=== PATIENT | male | born 1955 | race Caucasian/White ===

== ENCOUNTER 2018-03-06 10:38 | Emergency (ER) | payer OTHER ==
[2018-03-06] MEDS ORDERED: HYDROcodone/Acetaminophen 10/325 mg Tablet ONE (12:35)
[2018-03-06] MEDS ORDERED: Naproxen 500 MG TAB ONE (12:35)
[2018-03-06] MEDS ORDERED: Diazepam 5 MG TAB ONE (12:35)
--- NOTE | 2018-03-06 13:11 | RAD ---
TWO VIEWS RIGHT HIP: Date: 03-06-18 Provided Clinical History: Right hip pain. FINDINGS: There is no evidence for fracture or other acute osseous abnormality. Mild right hip joint space loss is seen. Alignment appears anatomic. No lytic or blastic lesions are seen. IMPRESSION: Mild right hip degenerative change. POS: GARY
--- NOTE | 2018-03-06 13:37 | RAD ---
LUMBAR SPINE RADIOGRAPHS THREE VIEWS: Date: 03-06-18 Provided Clinical History: Right sided sciatica. FINDINGS: Five non-rib bearing lumbar type vertebral bodies are present. Lumbar alignment appears normal. Verte bral body heights appear preserved. Pedicles appear intact. Mild disc space narrowing at L4-5 and mil d lower lumbar spine facet arthritis. IMPRESSION: Mild lower lumbar disc and facet degenerative change. POS: WARD
== END 2018-03-06 13:35 | disposition home or self-care (01) ==
LOC: MADERS 10:38
DX: M54.41 Lumbago with sciatica, right side (principal); M62.838 Other muscle spasm; K21.9 Gastro-esophageal reflux disease without esophagitis; E78.5 Hyperlipidemia, unspecified; I10 Essential (primary) hypertension; M19.90 Unspecified osteoarthritis, unspecified site; H40.9 Unspecified glaucoma; Z79.899 Other long term (current) drug therapy
CPT/HCPCS: 72100

== ENCOUNTER 2021-01-01 16:15 | Emergency (ER) | payer OTHER ==
[2021-01-01] MEDS ORDERED: Lidocaine 1% 20 ML MDV ONE (17:47)
[2021-01-01] MEDS ORDERED: Sulfameth/Trimethoprim DS 800-160mg TAB ONE (18:17)
== END 2021-01-01 18:20 | disposition home or self-care (01) ==
LOC: MADERS 16:15
DX: L02.511 Cutaneous abscess of right hand (principal); M19.90 Unspecified osteoarthritis, unspecified site; K21.9 Gastro-esophageal reflux disease without esophagitis; E78.5 Hyperlipidemia, unspecified; E78.00 Pure hypercholesterolemia, unspecified; I10 Essential (primary) hypertension
CPT/HCPCS: 10060; 87070; 87077; 87205

== ENCOUNTER 2021-01-03 10:40 | Emergency (ER) | payer OTHER | END 2021-01-03 11:32 | disposition home or self-care (01) | LOC: MADERS 10:40 | DX: Z48.817 Encounter for surgical aftercare following surgery on the skin and subcutaneous tissue (principal); M19.90 Unspecified osteoarthritis, unspecified site; K21.9 Gastro-esophageal reflux disease without esophagitis; E78.5 Hyperlipidemia, unspecified; E78.00 Pure hypercholesterolemia, unspecified; I10 Essential (primary) hypertension | CPT/HCPCS: 99282 ==

== ENCOUNTER 2022-06-12 10:34 | Emergency (ER) | payer OTHER ==
[~2022-06-12 10:34] MED LIST: Iopamidol 370 76% 100 ML VIAL ONE
[2022-06-12 11:42] LABS: #Basophils 0.1 thou/uL (0.0-0.2); #Eosinphils 0.2 thou/uL (0.0-0.7); #Lymphocytes 0.9 thou/uL (1.20-3.40); #Monocytes 0.8 thou/uL (0.11-0.59); #Neutrophils 6.6 thou/uL (1.40-6.50); %Basophils 1.1 % (0.0-1.0); %Eosinophils 2.6 % (0.0-10.0); %Lymphocytes 10.5 % (21.0-51.0); %Monocytes 9.6 % (0.0-10.0); %Neutrophils 76.1 % (42.0-75.0); Hemoglobin 13.6 g/dL (14.0-18.0); Mean Corpuscular HGB CONC 35.5 g/dL (32.0-36.0); Mean Corpuscular Hemoglobin 31.8 pg (27.0-31.0); Mean Corpuscular Volume 89.5 fL (78.0-98.0); Mean Platelet Volume 7.8 fL (7.4-10.4); Platelet Count 186 thou/uL (130-400); RBC Distribution Width 9.9 % (11.5-14.5); Red Blood Cell (RBC) Count 4.29 mill/uL (4.70-6.10); White Blood Cell (WBC) Count 8.6 thou/uL (4.8-10.8)
[2022-06-12 12:00] LABS: ALT (SGPT) 23 U/L (8-55); AST (SGOT) 34 U/L (5-34); Albumin 4.7 g/dL (3.4-4.8); Alkaline Phosphatase 78 U/L (40-110); Anion Gap 19 mmol/L (10-20); BUN (Urea Nitrogen) 4 mg/dL (8.4-25.7); CK (CPK) 280 U/L (30-200); Calc. Creatinine Clearance 0 mL/min (70-130); Calcium 9.2 mg/dL (7.8-10.44); Carbon Dioxide 20 mmol/L (23-31); Chloride 76 mmol/L (98-107); Estimated GFR 109; Glucose 98 mg/dL (80-115); Lipase 20 U/L (8-78); Potassium 3.7 mmol/L (3.5-5.1); Protein, Total 7.7 g/dL (5.8-8.1)
[2022-06-12 12:13] LABS: Sodium 111 mmol/L (136-145)
[2022-06-12 14:52] LABS: Bilirubin Negative (Negative); Blood, Urine Negative (Negative); Clarity Clear (Clear); Glucose, Urine (Dipstick) Negative (Negative); Ketone, Urine 80 mg/dL (Negative); Leukocyte Negative (Negative); Nitrite Negative (Negative); Protein, Urine (Dipstick) Trace mg/dL (Neg-Trace); Urobilinogen 0.2 mg/dL (Less than 2); pH, Urine 7.5 (5.0-9.0)
[2022-06-12] MEDS ORDERED: Sodium Chloride 0.9% 250 ML 250 ML ONE (14:53)
[2022-06-12] MEDS ORDERED: Morphine 4 MG/ML VIAL ONE ×2 (14:53→20:17)
[2022-06-12] MEDS ORDERED: Azithromycin 500 MG VIAL ONE (14:53)
[2022-06-12] MEDS ORDERED: cefTRIAXone\\ROCEPHIN 1 GM VIAL ONE (14:53)
[2022-06-12] MEDS ORDERED: Sodium Chloride 0.9% 1,000 ML ONE (14:53)
[2022-06-12 15:36] LABS: Anion Gap 21 mmol/L (10-20); BUN (Urea Nitrogen) 5 mg/dL (8.4-25.7); Calc. Creatinine Clearance 0 mL/min (70-130); Calcium 9.2 mg/dL (7.8-10.44); Carbon Dioxide 17 mmol/L (23-31); Chloride 77 mmol/L (98-107); Estimated GFR 111; Glucose 108 mg/dL (80-115); Potassium 3.6 mmol/L (3.5-5.1)
[2022-06-12 15:49] LABS: Sodium 111 mmol/L (136-145)
[2022-06-12 16:25] LABS: SARS-CoV-2 NAA Rapid Test Not Detected (NotDetected)
[2022-06-12 19:27] LABS: Anion Gap 17 mmol/L (10-20); BUN (Urea Nitrogen) 5 mg/dL (8.4-25.7); Calc. Creatinine Clearance 0 mL/min (70-130); Calcium 8.9 mg/dL (7.8-10.44); Carbon Dioxide 18 mmol/L (23-31); Chloride 79 mmol/L (98-107); Estimated GFR 112; Glucose 104 mg/dL (80-115); Potassium 3.4 mmol/L (3.5-5.1)
[2022-06-12 19:28] LABS: Sodium 111 mmol/L (136-145)
== END 2022-06-12 22:45 | disposition short-term general hospital (02) ==
LOC: MADERS 10:34
DX: S20.211A Contusion of right front wall of thorax, initial encounter (principal); E87.1 Hypo-osmolality and hyponatremia; R05.9 Cough, unspecified; I10 Essential (primary) hypertension; E78.00 Pure hypercholesterolemia, unspecified; K21.9 Gastro-esophageal reflux disease without esophagitis; M19.90 Unspecified osteoarthritis, unspecified site; W01.198A Fall on same level from slipping, tripping and stumbling with subsequent striking against other object, initial encounter; Y92.008 Other place in unspecified non-institutional (private) residence as the place of occurrence of the external cause; Z20.822 Contact with and (suspected) exposure to COVID-19; Z79.899 Other long term (current) drug therapy
CPT/HCPCS: 70450; 71260; 74177; 80053; 81003; 82550; 83690; 84484; 85025; 93005; 96365; 96367; 96375; 96376; J0456; J0696; J2270; J7050; Q9967